=== PATIENT | male | born 1965 | race Hispanic/Latino ===

== ENCOUNTER 2024-11-10 15:17 | Emergency (ER) | payer BC ==
[~2024-11-10] VITALS: Ht 175.3 cm; Wt 70.3 kg
[2024-11-10] MEDS: ASPIRIN 81 MG CHEW TAB PO STA (15:59)
[2024-11-10 16:09] LABS: BASOPHILS % 0.7 % (0.0-1.0); EOSINOPHILS % 0.9 % (0.0-6.0); LYMPHOCYTES % 20.4 % (18.0-39.1); MONOCYTES % 9.4 % (4.4-11.3); NEUTROPHILS % 68.2 % (38.7-80.0); RED CELL DISTRIBUTION WIDTH 13.2 % (11.7-14.4)
[2024-11-10 16:15] LABS: INR 1.06
[2024-11-10 16:24] LABS: EST GLOMERULAR FILTRATION RATE 72.0 ML/MIN (>=60)
[2024-11-10] MEDS: LACTATED RINGER'S 500 ML IV STA (16:59)
[2024-11-10] MEDS: LACTATED RINGER'S 500 ML IV ONE (16:59)
[2024-11-10] MEDS ORDERED: DOCUSATE SODIUM 100 MG CAP PO PRN (17:15)
[2024-11-10] MEDS ORDERED: LIDOCAINE 4% PATCH TP PRN (17:15)
[2024-11-10] MEDS ORDERED: DIPHENHYDRAMINE HCL 25 MG CAP PO PRN (17:15)
[2024-11-10] MEDS ORDERED: SIMETHICONE 80 MG CHEW PO PRN (17:15)
[2024-11-10] MEDS ORDERED: ACETAMINOPHEN 325 MG TAB PO PRN (17:15)
[2024-11-10] MEDS ORDERED: BENZONATATE 100 MG CAP PO PRN (17:15)
[2024-11-10] MEDS ORDERED: DEXTROSE 50% SYRINGE 50 ML IV PRN (17:15)
[2024-11-10] MEDS ORDERED: ALBUTEROL/IPRATROPIUM 3 ML NEB NEB PRN (17:15)
[2024-11-10] MEDS ORDERED: MELATONIN 5 MG TABLET PO PRN (17:15)
[2024-11-10] MEDS ORDERED: HYDRALAZINE HCL 20 MG/ML VIAL IV PRN (17:15)
[2024-11-10] MEDS ORDERED: POTASSIUM CHLORIDE 20 MEQ TAB CR PO PRN (17:15)
[2024-11-10] MEDS ORDERED: ONDANSETRON HCL INJ 2MG/ML 2ML 2 MG/ML VIAL IV PRN (17:15)
[2024-11-10] MEDS: ENOXAPARIN SOD INJ 40 MG/0.4 ML SYR SC SCH (17:15)
[2024-11-10 18:33] VITALS: PULSE 105; RESP 20; TEMP 97.7
[2024-11-10 19:30] VITALS: PULSE 103; RESP 20; O2SAT 98
[2024-11-10] MEDS ORDERED: ATORVASTATIN 40 MG TAB PO SCH (21:00)
[2024-11-11] MEDS ORDERED: PANTOPRAZOLE SOD 40 MG TABEC PO SCH (07:30)
[2024-11-11] MEDS ORDERED: ASPIRIN 81 MG ENTERIC COATED PO SCH (09:00)
== END 2024-11-10 18:40 | disposition left against medical advice (07) ==
LOC: ER 15:54 → ERHOLD 16:30 → UNDOADMOB 16:30
DX: R06.02 Shortness of breath (principal); R07.9 Chest pain, unspecified; I10 Essential (primary) hypertension; R94.31 Abnormal electrocardiogram [ECG] [EKG]; F17.210 Nicotine dependence, cigarettes, uncomplicated
CPT/HCPCS: 36415; 71046; 80053; 82550; 84484; 85025; 85379; 85610; 93005; 94799; 99284; J7120